=== PATIENT | female | born 1970 | race Two or more races ===

== ENCOUNTER 2017-04-25 09:44 | Emergency (ER) | payer SELFPAY ==
[~2017-04-25] VITALS: Ht 167.6 cm; Wt 56.4 kg
[2017-04-25 11:14] VITALS: BP 114/51
== END 2017-04-25 11:25 | disposition home or self-care (01) ==
LOC: ER 09:44
DX: S63.610A Unspecified sprain of right index finger, initial encounter (principal); W23.0XXA Caught, crushed, jammed, or pinched between moving objects, initial encounter; Y93.89 Activity, other specified; Y92.89 Other specified places as the place of occurrence of the external cause; Y99.8 Other external cause status
CPT/HCPCS: 73130